=== PATIENT | female | born 1955 ===

== ENCOUNTER 2018-02-17 19:58 | Emergency (ER) | payer OTHER ==
[~2018-02-17] VITALS: Ht 165.1 cm; Wt 82.0 kg
[2018-02-17 20:08] VITALS: BP 153/63
== END 2018-02-17 21:12 | disposition home or self-care (01) ==
LOC: ED 20:45
DX: S52.515A Nondisplaced fracture of left radial styloid process, initial encounter for closed fracture (principal); W01.0XXA Fall on same level from slipping, tripping and stumbling without subsequent striking against object, initial encounter; Y93.89 Activity, other specified; Y92.488 Other paved roadways as the place of occurrence of the external cause; Y99.8 Other external cause status
CPT/HCPCS: 29125; 99284